=== PATIENT | female | born 1950 | race Caucasian/White ===

== ENCOUNTER 2018-03-29 12:33 | Emergency (ER) | payer MEDICARE, OTHER ==
[~2018-03-29] VITALS: Ht 157.5 cm; Wt 70.0 kg
[2018-03-29] MEDS ORDERED: OMEG-14 PO (13:12)
[2018-03-29] MEDS ORDERED: PRAV20TA2 PO (13:12)
[2018-03-29] MEDS ORDERED: CHOL2000 PO (13:12)
[2018-03-29] MEDS ORDERED: ZOLP-413 PO (13:12)
[2018-03-29 13:27] LABS: BASOPHILS # (AUTO) 0.07 x10^3/uL (0-0.1); BASOPHILS % (AUTO) 1 % (0-1); EOSINOPHILS # (AUTO) 0.11 x10^3/uL (0-0.4); EOSINOPHILS % (AUTO) 1 % (1-7); LYMPHOCYTES # (AUTO) 1.58 x10^3/uL (1-3.4); LYMPHOCYTES % (AUTO) 16 % (22-44); MD NO; MEAN CORPUSCULAR HEMOGLOBIN 32.2 pg (27.0-34.8); MEAN CORPUSCULAR VOLUME 94.8 fL (80-100); MEAN PLATELET VOLUME 8.9 fL (7.4-10.4); MONOCYTES # (AUTO) 0.43 x10^3/uL (0.2-0.8); MONOCYTES % (AUTO) 4 % (2-9); NEUTROPHILS # (AUTO) 7.81 x10^3/uL (1.8-6.8); NEUTROPHILS % (AUTO) 78 % (42-75); PLATELET COUNT 208 x10^3/uL (130-400); RED BLOOD COUNT 4.19 x10^6/uL (3.82-5.3); RED CELL DISTRIBUTION WIDTH 12.8 % (9.6-15.2)
[2018-03-29 13:40] LABS: ALBUMIN 3.6 g/dL (3.4-5.0); ANION GAP 9 mmol/L (5-15); CALCIUM 8.3 mg/dL (8.5-10.1); CHLORIDE 108 mmol/L (98-107); CREATININE 0.99 mg/dL (0.55-1.02)
[2018-03-29 13:56] LABS: MICROSCOPIC AUTO
[2018-03-29 14:07] LABS: CULTURE INDICATED? NO
[2018-03-29 14:17] VITALS: BP 142/86
[2018-03-29] MEDS ORDERED: KETOROLAC 30 MG/1 ML ONE (14:22)
[2018-03-29] MEDS ORDERED: KETOROLAC 30 MG/1 ML IM ONE (14:30)
== END 2018-03-29 14:51 | disposition home or self-care (01) ==
LOC: ED 13:52
DX: N13.2 Hydronephrosis with renal and ureteral calculous obstruction (principal); Z90.49 Acquired absence of other specified parts of digestive tract; Z90.710 Acquired absence of both cervix and uterus
CPT/HCPCS: 36415; 74176; 80048; 81001; 82040; 85025; 93005; 96372; 99285; J1885